=== PATIENT | female | born 1955 | race Two or more races ===

== ENCOUNTER → 2020-10-09 | Outpatient (CLI) | payer MEDICARE ==
--- NOTE | 2020-10-09 10:20 | KCIC ---
EXAM: Lumbar spine MRI without contrast. HISTORY: Neurogenic claudication. TECHNIQUE: Multiplanar, multisequence magnetic resonance imaging of the lumbar spine was performed wi thout contrast. COMPARISON: None. FINDINGS: There is grade 1 anterolisthesis of L4 on L5, measuring 8 mm. There is grade 1 anterolisthe sis of L3 on L4, measuring 3 mm. There is mild S-shaped lumbar scoliosis. There is degenerative endpl ate remodeling and disc space narrowing at L4-L5. There is no fracture or suspicious osseous lesion. The conus terminates at L2. At L1-L2, there is a minimal disc bulge. There is no stenosis. At L2-L3, there is a mild disc bulge. There is mild left greater than right facet arthropathy. There is mild central canal stenosis. At L3-L4, there is a mild disc bulge. There is moderate bilateral facet arthropathy. There is grade 1 anterolisthesis. There is mild to moderate central canal stenosis. At L4-L5, there are broad-based right greater than left foraminal to extraforaminal disc protrusions and annular tears superimposed on a disc bulge and endplate remodeling. There is severe bilateral fac et arthropathy. There is grade 1 anterolisthesis. There is mild bilateral foraminal stenosis with abu tment of the exiting L4 nerve roots. There is severe central canal stenosis. At L5-S1, there is a shallow posterior central disc protrusion and there is a left foraminal to extra foraminal disc osteophyte complex superimposed on a disc bulge and endplate remodeling. There is mild left foraminal stenosis with abutment of the exiting left L5 nerve root. IMPRESSION: 1. Multilevel degenerative change involving the lumbar spine, described in detail above. This is asso ciated with mild central canal stenosis at L2-L3, mild to moderate central canal stenosis at L3-L4, m ild bilateral foraminal stenosis with abutment the exiting L4 nerve roots and severe central canal st enosis at L4-L5 and mild left foraminal stenosis with abutment the exiting left L5 nerve root at L5-S 1. 2. Multilevel grade 1 anterolisthesis and mild scoliosis, described above. Electronically signed by: Nithya Pedro MD (10/09/2020 10:17 AM) [id number]
== END ==
LOC: KCIC MRI 09:07
PROVIDERS: ATTEND Family Medicine
DX: M47.817 Spondylosis without myelopathy or radiculopathy, lumbosacral region (principal); M48.062 Spinal stenosis, lumbar region with neurogenic claudication; M43.17 Spondylolisthesis, lumbosacral region; M41.86 Other forms of scoliosis, lumbar region
CPT/HCPCS: 72148

== ENCOUNTER → 2021-01-31 | Outpatient (CLI) | payer MEDICARE ==
--- NOTE | 2021-01-31 12:22 | KCIC ---
EXAMINATION: Magnetic resonance imaging (MRI) of the cervical spine without contrast 01/31/2021 10:15 A M HISTORY: New onset frequent falls TECHNIQUE: Multiplanar multi-weighted MRI of the cervical spine was performed without intravenous con trast using the standard cervical spine protocol. Contrast information: None administered COMPARISON: MRI cervical spine 04/16/2006 FINDINGS: Anterior cervical discectomy and fusion is identified at C5-C6. There is volume loss involving the le ft hemicord at this level secondary to myelomalacia with associated T2 signal hyperintensity. Posteri or fossa is normal in appearance. Vertebral artery flow voids are maintained. Craniocervical junction is intact. Atlantoaxial articulation is normal. Vertebral body heights are maintained. No acute frac tures identified. No significant marrow edema. There is mild disc height loss at C4-C5 and C6-C7. Min imal antral listhesis of C7 on T1. Disc desiccation is identified all levels of the cervical spine. T here is no prevertebral edema. No parasternal soft tissue abnormality is identified. C2-C3: Disc is normal in configuration. No significant facet arthropathy. No neuroforaminal or spinal canal stenosis. C3-C4: There is mild disc bulge. Moderate facet arthropathy. No uncovertebral joint disease. Mild rig ht neuroforaminal stenosis. No spinal canal stenosis. C4-C5: There is a posterior disc osteophyte complex. There is mild facet arthropathy. Mild uncoverteb ral joint disease. Mild bilateral neuroforaminal stenosis. Mild spinal canal stenosis, exacerbated by ligamentum flavum infolding. No deformity of the cord or cord signal alteration. C5-C6: This level is fused. No residual neuroforaminal stenosis or spinal canal stenosis. Left hemico rd myelomalacia. C6-C7: There is a posterior disc osteophyte complex asymmetric to the left. Left foraminal disc extru tiera. Mild facet arthropathy. Mild uncovertebral joint disease. Severe left neuroforaminal stenosis. Mild spinal canal stenosis without deformity of the cord or cord signal alteration. C7-T1: Mild disc bulge. Mild facet arthropathy.. No significant spinal canal or neuroforaminal stenos is. IMPRESSION: Anterior cervical discectomy and fusion hardware is identified C5-C6 without evidence for hardware fa ilure. Left hemicord myelomalacia. Transitional level disease identified at C6-C7 with a left foraminal disc extrusion resulting in brendan re left neuroforaminal stenosis. Electronically signed by: Lacy Mccray MD (01/31/2021 12:20 PM) [place] [id number]
--- NOTE | 2021-02-01 09:18 | KCIC ---
EXAM: XR L-SPINE BENDING ONLY 2-3 VIEWS 01/31/2021 11:00 AM CLINICAL INDICATION: Lumbar spondylolisthesis COMPARISON: MR lumbar spine 10/09/2020 TECHNIQUE: Standing flexion and extension views of the lumbar spine FINDINGS: There 5 nonrib-bearing lumbar vertebral bodies. No acute fracture. 9 mm anterolisthesis of L4 on L5 is unchanged between flexion and extension. Alignment is otherwise normal. There is mild di sc space narrowing at L4-L5 and L5-S1. Mild facet arthrosis. IMPRESSION: 1. 9 mm anterolisthesis of L4 on L5 without evidence of instability. 2. Mild degenerative disc disease at L4-L5 and L5-S1. Electronically signed by: Kari Vera MD (02/01/2021 9:15 AM) [id number]
== END ==
LOC: KCIC MRI 09:43
PROVIDERS: ATTEND Neurological Surgery
DX: M51.37 Other intervertebral disc degeneration, lumbosacral region (principal); M48.02 Spinal stenosis, cervical region; M43.16 Spondylolisthesis, lumbar region; M48.07 Spinal stenosis, lumbosacral region; M47.816 Spondylosis without myelopathy or radiculopathy, lumbar region; M25.78 Osteophyte, vertebrae; M47.813 Spondylosis without myelopathy or radiculopathy, cervicothoracic region; G95.89 Other specified diseases of spinal cord
CPT/HCPCS: 72100; 72141

== ENCOUNTER → 2021-02-09 | Outpatient (CLI) | payer MEDICARE ==
[~2021-02-09] MED LIST: IOHEXOL 180 MG/ML 10 ML VIAL. ONE; PIOG30TA41 PO; methylPREDNISolone ACETATE 40 MG/ML VIAL. ONE; methylPREDNISolone ACETATE 80 MG/ML VIAL. ONE
--- NOTE | 2021-02-09 13:15 | PDOC1 ---
INITIAL PAIN CONSULT DATE OF SERVICE: DOS: DATE: 02/09/21 TIME: 13:08 CHIEF COMPLAINT: Chief Complaint: Low back and left lower extremity pain HISTORY OF PRESENT ILLNESS: 67-year-old female presents history of pain in the low back and left lower extremity as well as some in the right but mostly on the left side for many years reports is worse over the past year or so not the result of any specific injury or accident that she is aware but getting worse in the low back into the left lower extremity posterior gluteus posterior lateral thigh lateral anterior thigh anterior medial thigh medial lower leg and anterior lower leg into the foot involving all the toes patient reports not result of any specific injury or accident but getting worse over time patient has had previous therapy many years ago nothing recently doing some exercise on her own and some stretching mainly but without significant decrease patient reports she is taking Aleve 3 times a day which does help by about 20 to 30% patient reports it wakes her from sleep frequently does not affect her bowel bladder control but does affect her ability to walk and she is not using any assistive devices however such as canes or walkers. Patient have an MRI scan of the lumbar spine showing multilevel degenerative change with mild central canal stenosis at L2-3 moderate central stenosis L3-4 and mild bilateral foraminal stenosis at L4-5 with the exiting L4 nerve roots abutment and severe central canal stenosis at L4-5 and mild left foraminal stenosis with abutment of the exiting left L5 nerve root and L5-S1. Patient rates her disability of 0-10 10 being the worst is a 9 with family home responsibilities and occupational activities for with recreation 6 with self- care and life support activities. She reports no loss of motor function but sig nificant fatigability of left lower extremity with walking and standing she reports is better with sitting and laying down but again awakened from sleep frequently. PAST MEDICAL HISTORY: PMH: Arthritis, diabetes, hearing loss PREVIOUS SURGERIES: Past Surgical Hx: Extractions, cervical fusion, , carpal tunnel release, hysterectomy CURRENT MEDICATIONS: Current Meds: Active Scripts Medications Dose Route/Sig Max Daily Dose Days Date Category Actos (Pioglitazone Hcl) 30 Mg Tablet 1 Tab PO DAILY 30 02/09/21 Reported ALLERGIES; Allergies: Coded Allergies: No Known Drug Allergies (Unverified , 02/09/21) FAMILY HISTORY: Family Hx: Cancer and diabetes SOCIAL HISTORY: Social Hx: Patient does not drink alcohol does not use any illegal illicit recreational drugs does not smoke is lives with her spouse has 4 children living at home, lives locally in [facility]. REVIEW OF SYSTEMS: ROS: Positive for those items mentioned in history of present illness, all systems are reviewed, otherwise negative ,and are complete full and well-documented on patient's chart. PHYSICAL EXAM: VS: Blood pressure is 143/63 pulse 67 respirations 18 temperature is 98.1 F height 5 foot weight is 178 pounds PE: PHYSICAL EXAMINATION: GENERAL: The patient is awake, alert, oriented, appropriate, very pleasant demeanor HEENT: Shows normocephalic, atraumatic. Patient wearing hearing aids extraocular movements are intact and symmetrical. Oral cavity: Mucous membranes moist and pink. Dentition is intact. NECK: Shows anterior throat supple without palpable lymphadenopathy noted. Swallow reflex symmetrical. CHEST: Shows normal on inspection. Breath sounds are clear bilaterally, no rales rhonchi or wheezes auscultated. HEART: Shows S1, S2 clear. No murmurs auscultated. ABDOMEN: Soft, nontender, nondistended, obese. No palpable organomegaly is noted. No rebound or guarding demonstrated. BACK: Shows spine grossly in the midline. Normal-appearing cervical lordotic curvature. There is slightly increased thoracic kyphosis, some minor flattening of the lumbar lordotic curvature. Lumbar paraspinous muscles show symmetrical on inspection, on palpation shows some moderate tenderness diffusely throughout the upper, middle and lower distribution of the paraspinous muscles bilaterally and also into the lower thoracic paraspinous musculature, firm and tender, but without specific trigger points, without radiation of pain. The patient has good rotational motion of the lumbar spine, both laterally as well as extension and flexion without significant difficulty. No tenderness over the spinous processes, sacrum or sacroiliac regions. EXTREMITIES: Lower extremities show deep tendon reflexes 2+ in the patellar and tendo calcaneus tendons. Motor exam is 5 on a scale of 5 with right dorsiflexion, extension, quadriceps and hamstring flexion and 4/5 on the left. Peripheral pulses are 1+ posterior tibial. No peripheral edema is noted bilaterally. Lower extremities are warm and dry to touch, equal in color and appearance. Straight leg raise noted to be negative on the right, left side is positive at approximately 40 degrees decreased with knee flexion. Gaenslen's and Michael's maneuvers are negative bilaterally as well. The patient is able t o stand, stand on her toes walks with a slight favoring gait does appear to favor the left lower extremity mildly not use any assistive devices however to ambulate. SKIN: Shows warm and dry, good turgor. No edema. No sores, rashes or bruising throughout. IMPRESSION: Impression: 65-year-old female with long history low back and left greater than right lower extremity pain in a radicular fashion MRI scan lumbar spine as noted Arthritis Diabetes Plan: Options were discussed with the patient including conservative medical management physical therapies interventional techniques. Patient would like to interventional techniques. We discussed a lumbar epidural steroid injection using description as well as anatomical models to describe the procedure. Risks were discussed including but not limited to: Bleeding, infection, possibility of epidural hematoma and subsequent neurological compromise, dural puncture, headaches, spinal cord and/or nerve damage, side effects of steroid medication, and poor results regarding pain control. Patient understands and wished to proceed. Patient will return to the clinic approximate 2 weeks for follow-up, was counseled as return appointment activity level and side effects to be aware of. Procedure is lumbar epidural steroid injection under local anesthetic using sterile prep and drape at the L4-5 level using C-arm fluoroscopic guidance in both AP and lateral views medications injected is 120 mg Depo-Medrol + 10 mL preservative-free normal saline and 2 mL contrast- condition at discharge is stable patient tolerated procedure well had no complications. LAURO GARCIA MD Feb 09, 2021 13:15
--- NOTE | 2021-02-09 13:16 | PDOC4 ---
PROCEDURE Procedure Patient was consented for lumbar epidural steroid injection. Risks were dis cussed including but not limited to: Bleeding, infection, possibility of epidural hematoma and subsequent neurological compromise, dural puncture, headaches, spinal cord and/or nerve damage, side effects of steroid medication, and poor results regarding pain control. Patient understands and wished to proceed. Procedure is lumbar epidural steroid injection under local anesthetic using sterile prep and drape at the forefoot level using C-arm fluoroscopic guidance in both AP and lateral views medications injected is 120 mg Depo-Medrol + 10 mL preservative-free normal saline and 2 mL contrast- condition at discharge is stable patient tolerated procedure well had no complications. LAURO GARCIA MD Feb 09, 2021 13:16
== END | disposition home or self-care (01) ==
LOC: PNCL 09:09
PROVIDERS: ATTEND Anesthesiology
DX: M54.5 Low back pain (principal); M79.605 Pain in left leg; M19.90 Unspecified osteoarthritis, unspecified site; E11.9 Type 2 diabetes mellitus without complications; Z79.899 Other long term (current) drug therapy; Z90.710 Acquired absence of both cervix and uterus; Z98.890 Other specified postprocedural states; Z83.3 Family history of diabetes mellitus
CPT/HCPCS: 62323; J1030; J1040; Q9965

== ENCOUNTER → 2021-06-28 | Outpatient (CLI) | payer MEDICARE ==
[~2021-06-28] MED LIST changes: -IOHEXOL 180 MG/ML 10 ML VIAL. ONE; -methylPREDNISolone ACETATE 40 MG/ML VIAL. ONE; -methylPREDNISolone ACETATE 80 MG/ML VIAL. ONE
--- NOTE | 2021-06-28 15:33 | RAD ---
EXAM: CT right shoulder DATE: 06/28/2021 11:42 AM COMPARISON: No prior INDICATION: Reason: RIGHT SHOULDER PAIN / Spl. Instructions: / History: TECHNIQUE: CT of the right shoulder was performed without IV contrast. PQRS compliance statement - One or more of the following individualized dose reduction techniques wer e utilized for this study: 1. Automated exposure control 2. Adjustment of the mA and/or kV according to patient size 3. Use of iterative reconstruction technique FINDINGS: There is a nondisplaced avulsion fracture of the greater tuberosity, mildly comminuted at the tendino us attachment. No additional fracture plane is identified. AC joint degenerative change. Mild lateral downsloping of the distal acromion. Sclerotic focus right glenoid likely bone island. Mild dependent opacities in the lower lobes likely atelectasis. IMPRESSION: 1. Nondisplaced comminuted avulsion fracture of the right greater tuberosity. Electronically signed by: Beck Mancia MD (06/28/2021 3:30 PM) [id number]
== END ==
LOC: CT 11:30
PROVIDERS: ATTEND Orthopaedic Surgery
DX: S42.434A Nondisplaced fracture (avulsion) of lateral epicondyle of right humerus, initial encounter for closed fracture (principal); M19.011 Primary osteoarthritis, right shoulder; X58.XXXA Exposure to other specified factors, initial encounter; Y93.89 Activity, other specified; Y92.89 Other specified places as the place of occurrence of the external cause; Y99.8 Other external cause status
CPT/HCPCS: 73200